=== PATIENT | male | born 1985 | race Caucasian/White ===

== ENCOUNTER 2017-06-17 19:24 | Emergency (ER) | payer OTHER ==
[2017-06-17 19:45] VITALS: BP 114/65
[2017-06-17] MEDS ORDERED: GENTAMICIN SULFATE 50 DROP BTL EACHEYE ONE (20:04)
[2017-06-17] MEDS ORDERED: GENTAMICIN SULFATE 50 DROP BTL ONE (20:12)
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
== END 2017-06-17 20:18 | disposition home or self-care (01) ==
LOC: ER 19:24
DX: H16.133 Photokeratitis, bilateral (principal); X32.XXXA Exposure to sunlight, initial encounter; Y93.89 Activity, other specified; Y92.63 Factory as the place of occurrence of the external cause; Y99.0 Civilian activity done for income or pay